=== PATIENT | female | born 1990 | race Caucasian/White ===

== ENCOUNTER 2023-12-04 15:59 | Outpatient (CLI) | payer BC ==
[2023-12-04 16:25] LABS: BASOPHILS % (AUTO) 0.5 % (0-1); EOSINOPHILS # (AUTO) 0.1 X10'3 (0-0.9); EOSINOPHILS % (AUTO) 0.7 % (0-6); HEMATOCRIT 39.3 % (35.0-45.0); HEMOGLOBIN 13.1 g/dl (12.0-16.0); LYMPHOCYTES # (AUTO) 2.2 X10'3 (1.1-4.8); LYMPHOCYTES % (AUTO) 27.4 % (21-51); MEAN CORPUSCULAR HEMOGLOBIN 32.5 PG (27.0-31.0); MEAN CORPUSCULAR HGB CONC 33.3 g/dL (33.0-36.5); MEAN CORPUSCULAR VOLUME 97.6 FL (78-98); MEAN PLATELET VOLUME 7.4 FL (7.4-10.4); MONOCYTES # (AUTO) 0.7 X10'3 (0-0.9); MONOCYTES % (AUTO) 8.7 % (2-12); NEUTROPHILS % (AUTO) 62.7 % (42-75); PLATELET COUNT 285 X10'3 (140-440); RED BLOOD COUNT 4.03 X10'6 (4.20-5.60); RED CELL DISTRIBUTION WIDTH 12.7 % (11.5-14.5)
[2023-12-04 16:49] LABS: ALANINE AMINOTRANSFERASE 24 U/L (12-78); ALBUMIN/GLOBULIN RATIO 1.3 (1.1-1.5); ALKALINE PHOSPHATASE 36 IU/L (46-116); ANION GAP 7 (8-16); ASPARTATE AMINO TRANSFERASE 13 U/L (10-37); BILIRUBIN,TOTAL 0.3 MG/DL (0.1-1.0); BLOOD UREA NITROGEN 10 MG/DL (7-18); BUN/CREATININE RATIO 13.7 (10.0-20.0); CALCIUM 9.1 MG/DL (8.5-10.1); CHLORIDE 101 MMOL/L (99-107); CHOL/HDL RATIO 1.9 (0.00-4.99); CHOLESTEROL 170 MG/DL (0-200); CREATININE 0.73 MG/DL (0.40-0.90); FREE T4 (FREE THYROXINE) 0.74 NG/DL (0.73-1.40); GLUCOSE 99 MG/DL (70-104); HDL CHOLESTEROL 90 MG/DL (35-60); LDL CHOLESTEROL 70 MG/DL (50-100); POTASSIUM 3.8 MMOL/L (3.5-5.1); SODIUM 137 MMOL/L (135-145); THYROID STIMULATING HORMONE 2.05 ulU/ml (0.34-4.50); TOTAL PROTEIN 7.2 G/DL (6.4-8.2); TRIGLYCERIDES 47 MG/DL (20-135); eGFR > 90 ML/MIN
== END 2023-12-04 23:59 | disposition home or self-care (01) ==
LOC: RAD 15:59
PROVIDERS: ATTEND Family Medicine
DX: F32.89 Other specified depressive episodes (principal); K21.9 Gastro-esophageal reflux disease without esophagitis; F51.01 Primary insomnia; Z82.49 Family history of ischemic heart disease and other diseases of the circulatory system
CPT/HCPCS: 36415; 80053; 80061; 84439; 84443; 85025

== ENCOUNTER 2024-04-09 09:40 | Emergency (ER) | payer BC ==
[~2024-04-09] VITALS: Ht 165.1 cm; Wt 61.4 kg
[2024-04-09 09:42] VITALS: BP 124/76; PULSE 116; O2SAT 99
[2024-04-09 09:48] VITALS: RESP 16
[2024-04-09] MEDS: ketorolac trometh 30MG/ML vial 30 MG/ML VIAL IM ONE (09:48)
[2024-04-09] MEDS: dexamethasone sod phosphate 10mg/ml inj PO STA (09:48)
[2024-04-09] MEDS ORDERED: AZIT250T PO (10:21)
[2024-04-09] MEDS ORDERED: ALPR2TAB2 PO (10:21)
[2024-04-09] MEDS ORDERED: HYDR-3972 PO (10:21)
[2024-04-09] MEDS ORDERED: PRED20TA PO (10:21)
[2024-04-09] MEDS ORDERED: PROM118S5 PO (10:21)
[2024-04-09] MEDS ORDERED: ALBU8HFA INH (10:21)
[2024-04-09 10:29] VITALS: TEMP 98.5
== END 2024-04-09 10:31 | disposition home or self-care (01) ==
LOC: ER 09:40
DX: U07.1 COVID-19 (principal)
CPT/HCPCS: 96372; 99283; J1100; J1885